=== PATIENT | male | born 2005 | race Caucasian/White ===

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

== ENCOUNTER 2024-09-06 22:09 | Emergency (ER) | payer BC, SELFPAY ==
[2024-09-06 22:44] VITALS: BP 127/71; PULSE 79; RESP 16; TEMP 36.8; O2SAT 97; BMI 22.7
--- NOTE | 2024-09-06 22:50 | XR_ITS ---
PROCEDURE INFORMATION: Exam: XR Left Knee Exam date and time: 09/06/2024 10:56 PM Age: 18 years old Clinical indication: Pain; Knee; Left; Additional info: Fall TECHNIQUE: Imaging protocol: Radiologic exam of the left knee. Views: 3 views. COMPARISON: No relevant prior studies available. FINDINGS: Bones/joints: Nondisplaced, minimally depressed fracture lateral tibial plateau. Small exostosis along proximal fibular metaphysis. No dislocation. Moderate joint effusion. Soft tissues: Unremarkable. IMPRESSION: LEFT proximal tibial fracture.
[2024-09-07] VITALS: BP 121/72; PULSE 75; O2SAT 98
--- NOTE | 2024-09-07 00:50 | PC.NURSE ---
called [facility] for an ortho consult for this pt said they would give us a call back
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
[2024-09-07] MEDS: IBUPROFEN 600 MG TABLET PO (01:45)
[2024-09-07 01:47] VITALS: BP 121/61; PULSE 76; RESP 15; TEMP 36.8; O2SAT 97
== END 2024-09-07 01:52 | disposition short-term general hospital (02) ==
PROVIDERS: Emergency Provider Emergency Medicine; PCP Pediatrics
DX: S82.122A Displaced fracture of lateral condyle of left tibia, initial encounter for closed fracture (principal); V58.2XXA Person on outside of pick-up truck or van injured in noncollision transport accident in nontraffic accident, initial encounter
CPT/HCPCS: 73562; 99285

== ENCOUNTER 2024-11-11 11:08 | Outpatient (RCR) | payer BC, SELFPAY | END 2024-11-11 23:59 | disposition home or self-care (01) | LOC: PT 11:08 | PROVIDERS: PCP Pediatrics; Visit Provider Nurse Practitioner | DX: S82.142D Displaced bicondylar fracture of left tibia, subsequent encounter for closed fracture with routine healing (principal) | CPT/HCPCS: 97161 ==